=== PATIENT | male | born 1935 | race Asian ===

== ENCOUNTER 2019-12-03 12:18 | Emergency (ER) | payer MEDICARE, MEDICAID, SELFPAY ==
--- NOTE | ~2019-12-03 | XR_ITS ---
EXAMINATION: XR shoulder LT min 2V INDICATION: Left shoulder pain, initial encounter TECHNIQUE: Two views of the left shoulder are obtained. COMPARISON: None available FINDINGS: There is caudal migration of the acromion with respect to the distal clavicle. No fracture is identified although sensitivity is limited by osteopenia. The soft tissues are unremarkable. IMPRESSION: 1. Acromioclavicular joint separation. Reviewed, dictated and finalized at location A.
--- NOTE | 2019-12-03 12:35 | ED.GENADULT ---
HPI - General Adult General Chief complaint: Fall Stated complaint: fell Left shoulder pain Time Seen by Provider: 12/03/19 12:53 Source: patient Mode of arrival: ambulatory Limitations: no limitations History of Present Illness HPI narrative: 84-year-old male patient presents to the [facility] with complaints of left shoulder pain. According to his son-in-law patient did fall out of bed about 1:00 this morning landing on carpet and landing on his left shoulder. Son-in-law states that his bed is a little higher up than normal. Son-in-law states that they did give him to Motrin this morning and an ice pack but he still complains of pain. Related Data Home Medications Medication Instructions Recorded Confirmed lisinopril 12/03/19 metoprolol tartrate 12/03/19 Allergies Allergy/AdvReac Type Severity Reaction Status Date / Time No Known Allergies Allergy Unverified 10/21/17 16:53 Review of Systems Review of Systems: Narrative: CONSTITUTIONAL: Denies fever, chills, or sweats. EYES: Denies visual changes, redness, or discharge. ENT: Denies rhinorrhea, congestion, sore throat, or otalgia. CARDIOVASCULAR: Denies chest pain, palpitations, or edema. RESPIRATORY: Denies cough or dyspnea. GASTROINTESTINAL: Denies abdominal pain, nausea, vomiting, or diarrhea. GENITOURINARY: Denies dysuria or hematuria. SKIN: Denies rash or itching. MUSCULOSKELETAL: Denies back pain, joint pain, or myalgia. Positive left shoulder pain since this morning after a fall out of bed NEUROLOGIC: Denies headache, numbness, or weakness. PSYCHIATRIC: Denies anxiety or depression. PMFSH Comments At the time of my signature I agree with nursing past medical history, surgical, social, and family history. There is no relevant family history pertinent to the presenting complaint. Exam Narrative: Exam Narrative: GENERAL: Well-appearing, well-nourished, and in no acute distress. HEAD: Normocephalic, atraumatic. EYES: PERRLA and EOMI. ENT: Nares clear, no rhinorrhea or epistaxis. Mucous membranes moist. NECK: Supple. No lymphadenopathy CHEST: Clear to auscultation. No respiratory distress. HEART: Regular rate and rhythm. No murmur heard. Normal peripheral pulses. ABDOMEN: Soft, nontender, nondistended, normal active bowel sounds. EXTREMITIES: The L shoulder is without obvious asymmetry or deformity when compared to the R shoulder. No surface trauma, ecchymosis, crepitus. No bony deformity or prominence of the humeral head No erythema, warmth, swelling. no tenderness to palpation to clavicle, tenderness to the A to C joint and acromion, no tenderness noted to the scapula or humeral head. No tenderness to palpation of the bicipital groove or soft tissues. No tenderness to palpation of the muscles of the sterncleidomastoid, pectorals, biceps/triceps, deltoid, trapezius, rhomboid, latissimus dorsi, rotator cuff. pain, but no limitation with active or passive abduction/adduction, internal/external rotation, flexion/extension. Negative empty can and drop arm test (rotator cuff). No axillary tenderness or lymphadenopathy. Normal sensation over the deltoid and ability to flex arm at elbow indicates intact axillary nerve function. Distal motor and neurovascular status is intact. SKIN: Warm, dry, no rash. NEURO: No focal deficits. Alert and oriented x3. Course Reevaluation(s) Reevaluation #1: Called and spoke with Dr. Denney who is on-call for orthopedics today. Discussed with him that patient's x-ray shows an AC joint separation of the left shoulder. Dr. Denney is recommending a sling and have him follow-up with his office on Thursday and to call for an appointment. Discussed these findings with the patient and his son-in-law. Discussed with them that we will go ahead and fit him for a sling today and a copy of the patient's x-ray report was provided to the patient and the son-in-law today. Discussed with them they can continue treating the pain with Tylenol ibup
[2019-12-03 12:46] VITALS: BP 144/70; PULSE 69; RESP 20; TEMP 37.2
--- NOTE | 2019-12-03 13:48 | PC.NURSE ---
sling applied to left arm
== END 2019-12-03 13:57 | disposition home or self-care (01) ==
PROVIDERS: Emergency Provider Nurse Practitioner Family; PCP Internal Medicine
DX: S43.102A Unspecified dislocation of left acromioclavicular joint, initial encounter (principal); W06.XXXA Fall from bed, initial encounter
CPT/HCPCS: 73030; 99213; A4565; G0463